=== PATIENT | male | born 1935 | race African-American/Black ===

== ENCOUNTER 2018-11-29 16:20 | Inpatient (IN) ==
--- NOTE | 2018-11-29 18:14 | Diag Imaging Result Doc PS360 ---
EXAM: CT HEAD W/O CONTRAST HISTORY: syncope TECHNIQUE: CT head without contrast COMPARISON: 12/29/2012 FINDINGS: No parenchymal hemorrhage. No epidural or subdural hematoma. No subarachnoid hemorrhage. There are chronic microvascular ischemic changes. No mass identified on this noncontrasted exam. No hydrocephalus. No sinus opacification. IMPRESSION: 1.No hemorrhage 2.Chronic microvascular ischemic changes. This exam was performed using automated exposure control, adjustment of mA or kV according to patient size, and/or use of iterative reconstruction technique. Electronically signed by Bert Zacarias 11/29/2018 6:12 PM
[2018-11-29 18:47] LABS: BASO# 0.02 X1000 (0.0-0.2); BASO% 0.1 % (0.0-0.8); HEMATOCRIT 42.7 % (42.0-52.0); HEMOGLOBIN 14.7 g/dL (14.0-18.0); IMM GRAN# 0.07 X1000 (0.0-0.04); IMM GRAN% 0.4 % (0.0-0.5); LYMPH# 1.05 X1000 (1.2-3.4); LYMPH% 6.1 % (20.5-51.1); MCH 28.7 PG (27-31); MCHC 34.4 g/dL (33-37); MCV 83.4 FL (81-99); MONO# 2.73 X1000 (0.11-0.59); MONO% 15.8 % (1.7-9.3); MPV 11.9 FL (7.4-10.4); NEUT# 13.43 X1000 (1.4-6.5); NEUT% 77.6 % (42.2-75.2); PLT 125 X1000 (130-400); RBC 5.12 XMIL (4.7-6.1); RDW 14.6 % (11.5-14.5)
--- NOTE | 2018-11-29 18:56 | PROVIDER DOCUMENTATION ---
This chart was entered by Linh Carrizales Scribe, acting as scribe for Blake Tanner MD. HPI-Syncope/Dizziness - General Source: patient - History of Present Illness-Syncope/Dizzy Prior Episodes: reports: single episode today Onset/Duration: reports: just prior to arrival Timing: reports: gone now Position/Activity at time of episode: reports: standing Symptoms prior to episode: reports: lightheaded Context: reports: lost consciousness Loss of Consciousness: brief (seconds) Location of injury. (If syncope resulted in an injury.): reports: none Current Symptoms: reports: none/feels normal <Blake Tanner - Last Filed: 11/29/18 19:04> <Renato Guerrier - Last Filed: 11/29/18 21:05> - General Chief Complaint: Syncope Stated Complaint: DIZZY Time Seen by Provider: 11/29/18 16:57 Allergies/Adverse Reactions: Patient Allergies Allergy/AdvReac Type Severity Reaction Status Date / Time No Known Allergies Allergy Verified 01/24/15 19:23 Home Medications: Home Medication List Medication Instructions Recorded Confirmed Last Taken Type Allopurinol [Zyloprim] 300 mg PO DAILY 12/28/12 01/24/15 01/24/15 16:15 History Amlodipine Besylate 10 mg PO DAILY 12/28/12 01/24/15 01/24/15 16:15 History Lisinopril/Hydrochlorothiazide 1 each PO BID 12/28/12 01/24/15 01/24/15 16:15 History [Lisinopril-Hctz 20-12.5 mg Tab] Multivitamins/Minerals [Centrum 1 dose PO DAILY 01/24/15 01/24/15 01/24/15 16:15 History Silver] - History of Present Illness-Syncope/Dizzy Nature of Presenting Problem: Patient is a 83 year old male who presents after having a syncopal episode. Patient states he was lightheaded prior to passing out. Denies chest pain and palpitations. States having a prior episode of syncope in October. (Blake Tanner) Review of Systems - Adult - REVIEW OF SYSTEMS - ADULT Constitutional: reports: no symptoms reported. denies: chills, fever, fatique Eyes: reports: no symptoms reported Ears, Nose, Mouth & Throat: reports: no symptoms reported Cardiovascular: reports: no symptoms reported. denies: chest pain, irregular heart rate, palpitations Respiratory: reports: no symptoms reported Gastrointestinal: reports: no symptoms reported Genitourinary: reports: no symptoms reported Musculoskeletal: reports: no symptoms reported Integumentary: reports: no symptoms reported Neurological: reports: see HPI, syncope, other (lightheadedness). denies: dizziness/vertigo, headache/migraines Psychiatric: reports: no symptoms reported Endocrine: reports: no symptoms reported Hematologic/Lymphatic: reports: no symptoms reported Allergic/Immunologic: reports: no symptoms reported All Other Systems: Reviewed and Negative <Blake Tanner - Last Filed: 11/29/18 19:04> Past History - Adult - PAST MEDICAL HISTORY-ADULT Review of Records: reports: Old Records Reviewed, Nursing Assessment Review, Medications Reviewed, Social history reviewed & non-contributory. Major Childhood Illnesses: reports: denies history Cardiovascular: reports: HTN Respiratory: reports: denies history Gastrointestinal: reports: denies history Obstetrical/Gynecological: reports: denies history Genitourinary: reports: denies history Musculoskeletal: reports: other (gout) Neurological: reports: denies history Endocrine/Immune: reports: denies history Other Conditions: reports: denies history - PRIOR SURGERIES/PROCEDURES Surgical/Procedure History: reports: reviewed, not pertinent - IMMUNIZATION STATUS Childhood Immunizations: See Nurse Assessment Flu Vaccine: See Nurse Assessment - FAMILY HISTORY Family History: reviewed, not pertinent - SOCIAL HISTORY Smoking: cigarettes (former) Substance Use: alcohol Alcohol Use Frequency: occasionally Living Situation: family <Blake Tanner - Last Filed: 11/29/18 19:04> Physical Exam-General - PHYSICAL EXAM-ADULT Initial Vital Signs Reviewed: Yes - CONSTITUTIONAL General Appearance: alert, no apparent distress. negative: lethargic, slow to respond - EYES Eyes: PERRL/EOMI, pink conjunctivae. negative: scleral icterus - HEAD, EARS, NOSE, MOUTH & THROAT HENMT: normocephalic/atraumatic, moist mucous membranes, pharynx normal. neg ative: angioedema, hearing deficit - RESPIRATORY Respiratory: chest non-tender, lungs clear, normal breath sounds. negative: crackles, rhonchi, stridor, wheezing - CARDIOVASCULAR Cardiovascular: normal peripheral pulses, regular rate, rhythm. negative: tachycardia, systolic murmur - GASTROINTESTINAL (ABDOMEN) Abdominal Exam: normal bowel sounds, non tender, soft. negative: guarding, rebound - MUSCULOSKELETAL Extremity: non-tender, normal inspection. negative: deformity, erythema, swell ing DTR: bicep (R): 2+, bicep (L): 2+, tricep (R): 2+, tricep (L): 2+, knee (R): 2+, knee (L): 2+, ankle (R): 2+, ankle (L): 2+ - SKIN Integumentary: normal color, normal turgor, warm/dry. 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 negative: aphasia, facial droop - PSYCHIATRIC Psych/Mental Status: normal mood/affect, oriented x 3. negative: anxious <Blake Tanner - Last Filed: 11/29/18 19:04> Progress - PLAN OF CARE/RESULTS Result Diagrams: 11/29/18 18:30 - EKG 1 Time of EKG reading by physician:: 16:32 EKG Read and Signed by:: Blake Tanner EKG Interpretation (*Must complete 3 of following elements*): Abnormal Rate: 73 Rhythm: normal sinus rhythm [place]: normal [place] Interval: normal Comments: septal infarct, age undetermined - CHANGE OF SHIFT REPORT (ED Provider) 1 Report Given and Care Transferred to:: [facility] Time of Transfer: 19:00 Items Pending: Labs <Blake Tanner - Last Filed: 11/29/18 19:04> - PLAN OF CARE/RESULTS Result Diagrams: 11/29/18 18:30 11/29/18 18:30 - REASSESSMENT Reassessment #1 Time Reassessed: 19:32 Status: unchanged (Seen and examined by me. Case discussed wiht Dr. Tanner at shift change. Patient states he does not know why he passed out today. He does have low grade temp, and leukocytosis, so we will check CXR and urine, culture and lactate. D-Dimer was elevated, so will check CTA to r/o PE. BP has a diastolic of 118 at this time, so will give po meds as he states he did not take his normal BP meds this morning.) Reassessment #2 Time Reassessed: 21:04 Status: improving (Patient has PNE, at bedside says he's had shaking chills all day. Will give IV Rocephin/Zithromax and duoneb. Will benefit from overnight admissions) - CT/MRI 1 CT Study: Angiogram (Pulmonary) Impression: Abnormal, See EMR Report ( EXAM: CT ANGIOGRM PULMONARY ARTERIES HISTORY: syncope, r/o pe TECHNIQUE: CT chest with intravenous contrast. Pulmonary arterial protocol with MIP images. COMPARISON: 01/24/2015 FINDINGS: Suboptimal timing. Poor opacification of the upper pulmonary arteries. No definite filling defects within the pulmonary arteries. No pleural effusions. No cardiac megaly. No thoracic aortic aneurysm or dissection. No enlarged lymph nodes. Small infiltrates in the left upper lobe. There is pulmonary edema. Mild emphysema IMPRESSION: 1.Suboptimal timing, but no pulmonary emboli identified 2.Small left upper lobe infiltrates 3.Pulmonary edema 4.Emphysema This exam was performed using automated exposure control, adjustment of mA or kV according to patient size, and/or use of iterative reconstruction technique. Electronically signed by Bert Zacarias 11/29/2018 8:54 PM 11/29/182053 Interpreting Physician: Bert Zacarias MD Dictated Date/Time: 11/29/182050 cc: Renato Guerrier MD; None,PCP) - CONSULTS/PCP/HOSPITALIST Notification #1 *Consult/PCP/Hospitalist*: Dr. Madrid Time Discussed: 21:05 Consult Disposition: Will see in ED <Renato Guerrier - Last Filed: 11/29/18 21:05> - PLAN OF CARE/RESULTS Progress/Plan/Lab Results: Vital Signs - 8 hr 11/29/18 16:22 11/29/18 18:43 Temperature 99.1 F Pulse Rate 74 Pulse Rate [Sitting] 77 Pulse Rate [Standing] 71 Pulse Rate [Supine] 67 Respiratory Rate 16 Blood Pressure 134/70 Blood Pressure [Sitting] 156/74 Blood Pressure [Standing] 147/74 Blood Pressure [Supine] 163/63 O2 Sat by Pulse Oximetry 96 Laboratory Results - last 24 hr 11/29/18 11/29/18 11/29/18 18:30 18:30 18:30 WBC 17.30 H RBC 5.12 Hgb 14.7 Hct 42.7 MCV 83.4 MCH 28.7 MCHC 34.4 RDW Std Deviation 14.6 H Plt Count 125 L MPV 11.9 H Immature Gran % (Auto) 0.4 Neut % (Auto) 77.6 H Lymph % (Auto) 6.1 L [place] % (Auto) 15.8 H Eos % (Auto) 0.0 Baso % (Auto) 0.1 Immature Gran # (Auto) 0.07 H Neut # (Auto) 13.43 H Lymph # (Auto) 1.05 L [place] # (Auto) 2.73 H Eos # (Auto) 0.00 Baso # (Auto) 0.02 D-Dimer, Quantitative 0.87 H Sodium 139 Potassium 3.8 Chloride 102 Carbon Dioxide 24 L Anion Gap 13 BUN 14 Creatinine 1.3 H Estimated GFR/1.73 m2 > 60 BUN/Creatinine Ratio 11 Glucose 119 H Calculated Osmolality 279 Calcium 9.3 Magnesium Total Bilirubin 1.02 H AST 33 ALT 26 Alkaline Phosphatase 85 Creatine Kinase Troponin T Total Protein 7.2 Albumin 4.2 Globulin 3.0 Albumin/Globulin Ratio 1.4 Plasma Lactate Urine Source Urine Color Urine Turbidity Urine pH Ur Specific [place] Urine Protein Ur Glucose (Stick) Ur Ketones (Stick) Urine Blood Urine Nitrite Urine Bilirubin Urobilinogen Dipstick Urine Leukocytes Urine WBC (Auto) Urine RBC (Auto) U Epithel Cells (Auto) Urine Bacteria (Auto) 11/29/18 11/29/18 11/29/18 18:30 18:32 18:32 WBC RBC Hgb Hct MCV MCH MCHC RDW Std Deviation Plt Count MPV Immature Gran % (Auto) Neut % (Auto) Lymph % (Auto) [place] % (Auto) Eos % (Auto) Baso % (Auto) Immature Gran # (Auto) Neut # (Auto) Lymph # (Auto) [place] # (Auto) Eos # (Auto) Baso # (Auto) D-Dimer, Quantitative Sodium Potassium Chloride Carbon Dioxide Anion Gap BUN Creatinine Estimated GFR/1.73 m2 BUN/Creatinine Ratio Glucose Calculated Osmolality Calcium Magnesium Total Bilirubin AST ALT Alkaline Phosphatase Creatine Kinase 140 Troponin T < 0.010 Total Protein Albumin Globulin Albumin/Globulin Ratio Plasma Lactate Urine Source CLEAN CATCH Urine Color YELLOW Urine Turbidity CLEAR Urine pH 5.5 Ur Specific [place] 1.018 Urine Protein 50 A Ur Glucose (Stick) NEGATIVE Ur Ketones (Stick) NEGATIVE Urine Blood NEGATIVE Urine Nitrite NEGATIVE Urine Bilirubin NEGATIVE Urobilinogen Dipstick NORMAL Urine Leukocytes NEGATIVE Urine WBC (Auto) <10 Urine RBC (Auto) <10 U Epithel Cells (Auto) <10 Urine Bacteria (Auto) NEGATIVE 11/29/18 11/29/18 18:32 19:48 WBC RBC Hgb Hct MCV MCH MCHC RDW Std Deviation Plt Count MPV Immature Gran % (Auto) Neut % (Auto) Lymph % (Auto) [place] % (Auto) Eos % (Auto) Baso % (Auto) Immature Gran # (Auto) Neut # (Auto) Lymph # (Auto) [place] # (Auto) Eos # (Auto) Baso # (Auto) D-Dimer, Quantitative Sodium Potassium Chloride Carbon Dioxide Anion Gap BUN Creatinine Estimated GFR/1.73 m2 BUN/Creatinine Ratio Glucose Calculated Osmolality Calcium Magnesium 1.9 Total Bilirubin AST ALT Alkaline Phosphatase Creatine Kinase Troponin T Total Protein Albumin Globulin Albumin/Globulin Ratio Plasma Lactate 1.3 Urine Source Urine Color Urine Turbidity Urine pH Ur Specific [place] Urine Protein Ur Glucose (Stick) Ur Ketones (Stick) Urine Blood Urine Nitrite Urine Bilirubin Urobilinogen Dipstick Urine Leukocytes Urine WBC (Auto) Urine RBC (Auto) U Epithel Cells (Auto) Urine Bacteria (Auto) Orders Category Date Time Status ED: Orthostatic Vital Signs (E as directed Care 11/29/18 17:37 Active Nursing- Obtain EKG ONCE Care 11/29/18 17:37 Active CHEST-PORTABLE [RAD] Stat Exams 11/29/18 19:[address] HEAD W/O CONTRAST [CT] Stat Exams 11/29/18 17:37 Completed CTA [CT ANGIOGRM PULMONARY ARTERIES] [CT] Stat Exams 11/29/18 19:27 Completed BLOOD CULTURE [BLDCUL] Stat Lab 11/29/18 19:40 Results CBC WITH DIFF [HEME] Stat Lab 11/29/18 18:30 Completed CK PROFILE [SP CHEM] Stat Lab 11/29/18 18:32 Completed COMPREHENSIVE METABOLIC PANEL [CHEM] Stat Lab 11/29/18 18:30 Completed D-DIMER [COAG] Stat Lab 11/29/18 18:30 Completed LACTATE, PLASMA [CHEM] Stat Lab 11/29/18 19:48 Completed MAGNESIUM [CHEM] Stat Lab 11/29/18 18:32 Completed TROPONIN T Stat Lab 11/29/18 18:32 Completed URINALYSIS W/POSS RFLX CULT [URINALYSIS] Stat Lab 11/29/18 18:30 Completed 0.9% Sodium Chloride Inj [Ns] 1,000 ml Med 11/29/18 19:28 Discontinued IV 999 mls/hr Albuterol 2.5MG/Ipratrop 0.5MG [Duoneb (A & A)] Med 11/29/18 21:02 Once 3 ml INH NOW ONE Amlodipine [Norvasc] Med 11/29/18 19:31 Discontinued 10 mg PO NOW ONE Azithromycin 500 mg/Ns [Zithromax 500 mg/Ns] Med 11/29/18 21:02 Ordered 500 mg in 250 ml IV NOW LISINOpril/HCTZ [Prinzide 20/12.5MG] Med 11/29/18 19:31 Discontinued 1 each PO NOW ONE Rocephin 1 gm/Ns IV Now Med 11/29/18 21:02 Ordered CefTRIAXONE [Rocephin] 1 gm 0.9% Sodium Chloride Inj [Ns] 50 ml IV NOW Aerosol Treatments Routine Oth 11/29/18 21:03 Ordered Aerosol Treatments Stat Oth 11/29/18 21:03 Ordered EKG [EKG] Stat Ther 11/29/18 17:37 Ordered Departure <Blake Tanner - Last Filed: 11/29/18 19:04> - Departure Date of Disposition Decision: 11/29/18 Time of Disposition Decision: 21:04 Certified Medical Emergency: Emergent - Critical Care Note This patient required my direct & personal management of CC.: No <Renato Guerrier - Last Filed: 11/29/18 21:05> - Departure DIAGNOSIS: Syncope and collapse, Essential hypertension, COPD with exacerbation Left upper lobe pneumonia Qualifiers: Pneumonia type: due to unspecified organism Qualified Code(s): J18.1 - Lobar pneumonia, unspecified organism Disposition: ADMITTED INPATIENT 09 Condition: Fair Referrals and Follow-Ups: None,PCP [Primary Care Provider] - Attestation - Physician/ CHARMAINE Attestation The physician spent face to face time with patient:: Yes Advanced Practice Provider documentation review:: Supervising physician onsite and consulted in the evaluation and care of this patient. The physician did have a face to face encounter with the patient. <Blake Tanner - Last Filed: 11/29/18 19:04> - Physician/ CHARMAINE Attestation Patient care was provided by Advanced Practice Provider:: No The physician spent face to face time with patient:: Yes Advanced Practice Provider documentation review:: Supervising physician onsite and consulted in the evaluation and care of this patient. The physician did have a face to face encounter with the patient. <Renato Guerrier - Last Filed: 11/29/18 21:05> This chart was documented by the indicated scribe, (Linh Carrizales Scribe) and accurately reflects the services I performed and decisions made by me, Blake Tanner MD, as attested by the provider's signature.
[2018-11-29 19:09] LABS: AGAP 13; ALB/GLOB RATIO 1.4; ALBUMIN 4.2 g/dL (3.5-5.0); ALKALINE PHOSPHATASE 85 U/L (32-122); BUN 14 mg/dL (8-22); CALCIUM 9.3 mg/dL (8.8-10.2); CHLORIDE 102 mmol/L (98-107); COSMO 279; CREATININE 1.3 mg/dL (0.7-1.2); ESTIMATED GFR > 60; GLUCOSE 119 mg/dL (70-104); GOT 33 U/L (10-34); GPT 26 U/L (10-44); POTASSIUM 3.8 mmol/L (3.5-5.1); SODIUM 139 mmol/L (136-145); TCO2 24 mmol/L (25-35); TOTAL BILIRUBIN 1.02 mg/dL (0.20-1.00); TOTAL PROTEIN 7.2 g/dL (6.3-8.3)
[2018-11-29] MEDS ORDERED: NS 1,000 ML IV ONE (19:28)
[2018-11-29] MEDS ORDERED: NORVASC PO ONE (19:31)
[2018-11-29] MEDS ORDERED: PRINZIDE 20/12.5MG PO ONE (19:31)
[2018-11-29 19:59] LABS: URINE SOURCE CLEAN CATCH
--- NOTE | 2018-11-29 20:04 | Diag Imaging Result Doc PS360 ---
EXAM: CHEST-PORTABLE HISTORY: syncope TECHNIQUE: Chest single view COMPARISON: 01/24/2015 FINDINGS: The lungs are well expanded. The heart is not enlarged. The vessels are not distended. There are no infiltrates. No effusion identified. The appearance of the chest is similar to the prior exam. IMPRESSION: Stable chest Electronically signed by Bert Zacarias 11/29/2018 8:01 PM
[2018-11-29 20:09] LABS: BILIRUBIN URINE NEGATIVE (NEGATIVE); BLOOD URINE NEGATIVE (NEGATIVE); COLOR YELLOW; GLUCOSE URINE NEGATIVE (NEGATIVE); KETONE URINE NEGATIVE (NEGATIVE); LEUKOCYTES URINE NEGATIVE (NEGATIVE); NITRITE URINE NEGATIVE (NEGATIVE); PH URINE 5.5; PROTEIN URINE 50 mg/dL (NEGATIVE); SP GRAVITY URINE 1.018; TURBIDITY URINE CLEAR (CLEAR); UROBILINOGEN URINE NORMAL (NORMAL)
[2018-11-29 20:11] LABS: UR EPITHELIAL CELLS <10 /HPF (<10); URINE BACTERIA NEGATIVE /HPF; URINE RBC <10 /HPF (<10); URINE WBC <10 /HPF (<10)
--- NOTE | 2018-11-29 20:57 | Diag Imaging Result Doc PS360 ---
EXAM: CT ANGIOGRM PULMONARY ARTERIES HISTORY: syncope, r/o pe TECHNIQUE: CT chest with intravenous contrast. Pulmonary arterial protocol with MIP images. COMPARISON: 01/24/2015 FINDINGS: Suboptimal timing. Poor opacification of the upper pulmonary arteries. No definite filling defects within the pulmonary arteries. No pleural effusions. No cardiac megaly. No thoracic aortic aneurysm or dissection. No enlarged lymph nodes. Small infiltrates in the left upper lobe. There is pulmonary edema. Mild emphysema IMPRESSION: 1.Suboptimal timing, but no pulmonary emboli identified 2.Small left upper lobe infiltrates 3.Pulmonary edema 4.Emphysema This exam was performed using automated exposure control, adjustment of mA or kV according to patient size, and/or use of iterative reconstruction technique. Electronically signed by Bert Zacarias 11/29/2018 8:54 PM
[2018-11-29] MEDS ORDERED: ROCEPHIN 1 GM in NS 50 ML IV ONE (21:02)
[2018-11-29] MEDS ORDERED: ZITHROMAX 500 MG/NS 500 MG/250 ML IVPB IV ONE (21:02)
[2018-11-29] MEDS ORDERED: DUONEB (A & A) INH ONE (21:02)
[2018-11-29] MEDS ORDERED: ZITHROMAX 500 MG/NS 500 MG/250 ML IVPB IV SCH (21:45)
[2018-11-30 06:36] LABS: BASO# 0.04 X1000 (0.0-0.2); BASO% 0.3 % (0.0-0.8); EOS# 0.01 X1000 (0.0-0.7); EOS% 0.1 % (0.0-10.0); HEMATOCRIT 40.6 % (42.0-52.0); HEMOGLOBIN 13.9 g/dL (14.0-18.0); IMM GRAN# 0.05 X1000 (0.0-0.04); IMM GRAN% 0.3 % (0.0-0.5); LYMPH# 1.22 X1000 (1.2-3.4); LYMPH% 8.3 % (20.5-51.1); MCH 28.5 PG (27-31); MCHC 34.2 g/dL (33-37); MCV 83.4 FL (81-99); MPV 12.4 FL (7.4-10.4); NEUT# 11.44 X1000 (1.4-6.5); PLT 107 X1000 (130-400); RBC 4.87 XMIL (4.7-6.1); RDW 14.6 % (11.5-14.5); WBC 14.66 X1000 (4.8-10.8)
[2018-11-30 07:18] LABS: AGAP 7; BUN 13 mg/dL (8-22); CALCIUM 8.9 mg/dL (8.8-10.2); CHLORIDE 104 mmol/L (98-107); COSMO 277; CREATININE 1.2 mg/dL (0.7-1.2); ESTIMATED GFR > 60; GLUCOSE 123 mg/dL (70-104); POTASSIUM 3.6 mmol/L (3.5-5.1); SODIUM 138 mmol/L (136-145); TCO2 27 mmol/L (25-35)
--- NOTE | 2018-11-30 07:19 | EKG Report ---
Test Performed on : 11/29/2018 4:32:19 PM Test Reason : syncope Blood Pressure : / mmHG Vent. Rate : 073 BPM Atrial Rate : 073 BPM P-R Int : 190 ms QRS Dur : 108 ms QT Int : 378 ms P-R-T Axes : 053 -28 044 degrees QTc Int : 416 ms Normal sinus rhythm. Septal infarct , age undetermined Abnormal ECG When compared with ECG of 24-JAN-2015 19:15, Nonspecific T wave abnormality, worse in Lateral leads Unconfirmed Result
[2018-11-30] MEDS: DUONEB (A & A) INH PRN ×5 (08:30→23:25)
--- NOTE | 2018-11-30 10:48 | HISTORY AND PHYSICAL ---
PRIMARY CARE PHYSICIAN: [facility]. CHIEF COMPLAINT: Passed out at work, having cough, and shortness of breath. HISTORY OF PRESENT ILLNESS: An 83-year-old elderly male with a history of hypertension and gout who had an episode where he states he passed out at work. He states he was in the bathroom and the next thing he remembers he was on the floor. The patient states he was also having some cough, shortness of breath and chills recently. He was evaluated in the emergency department. He had imaging done which did show left upper lobe infiltrate consistent with pneumonia. Due to his presenting symptoms, he will require admission for further management. At the time of my examination, the patient denied any headache, nausea, vomiting, diarrhea, chest pain, hemoptysis, melena or weight change. He still complains of cough, shortness of breath, and chills. PAST MEDICAL HISTORY: Hypertension. Gout. PAST SURGICAL HISTORY: Back surgery. Abdominal surgery. Cataract surgery. ALLERGIES: No known drug allergies. CURRENT MEDICATIONS: He does not recall, but the nursing staff will reconcile. SOCIAL HISTORY: He is a former smoker. Admits to social alcohol use. Denies any illicit drug use. FAMILY HISTORY: No history of coronary disease. REVIEW OF SYSTEMS: A 14 point Review of Systems as listed in HPI. Other systems negative. PHYSICAL EXAMINATION: GENERAL: Cooperative and friendly male. He is resting comfortably now. VITAL SIGNS: Temperature 99.1, pulse 74, respirations 16, and blood pressure 134/70. HEENT: Normocephalic and atraumatic. Extraocular movements are intact. PERRLA. NECK: Supple. LUNGS: Bibasilar rales. CARDIOVASCULAR: Regular rate and rhythm. ABDOMEN: Soft. Positive bowel sounds. EXTREMITIES: No edema. NEUROLOGIC: He is awake, alert and oriented x3. : No bladder distention. SKIN: Warm. LABORATORY AND STUDIES: WBC 17.3, hemoglobin 14.7, hematocrit 42.7, and platelets 125,000. Sodium 139, potassium 2.8, chloride 102, C02 24, BUN 14, creatinine 1.3. Glucose 119. Pulmonary arteriograms shows small left upper lobe infiltrate. ASSESSMENT: An 83-year-old male with a history of hypertension and gout, who had presented to our emergency department after he had an episode where he passed out. The patient states that previously he was having cough, shortness of breath, and chills. He was well in the emergency department. He had imaging done which did show a small left upper lobe infiltrate consistent with pneumonia. Subsequently, he will require admission for further management. 1. Syncopal episode. 2. Left upper lobe infiltrate, suspected pneumonia. 3. Hypertension. PLAN: 1. We will admit the patient to the medical floor with telemetry. 2. We will check orthostatic blood pressure and pulse. 3. We will check echocardiogram. 4. We will check blood cultures and start patient on IV antibiotics. 5. We will monitor blood pressures and antihypertensive agents. 6. We will put patient on DVT prophylaxis and SCD's. 7. We will continue to follow and reassess. Make further recommendations based on patient's clinical course. cc: Lauri Madrid MD
[2018-11-30] MEDS ORDERED: VANCOMYCIN IV PER PHARMACY MISC SCH (16:15)
[2018-11-30] MEDS ORDERED: VANCOMYCIN 2,500 MG in NS 500 ML IV ONE (17:00)
--- NOTE | 2018-11-30 20:40 | PROGRESS NOTE ---
DATE: 11/30/2018 INTERVAL HISTORY: Mr. Hinton was admitted overnight for presyncope, cough, shortness of breath and chills episode. He was started on intravenous antibiotics and was given intravenous fluids. Since then he has been feeling better. He denies any new complaints. He tells me that when he was trying to come out of his toilet he felt really weak and his legs gave out, so he had to fall down on his knees. However, he did not lose any consciousness. He was able to get up by himself and thus when he called his partner and came to the emergency room. He continues to have cough with brownish expectoration. Sputum culture has not been collected yet. VITALS: Temperature no fever episode, a temperature of 98.4, pulse 72, respiratory rate 18, blood pressure 128/70. Saturating 95% on room air. PHYSICAL EXAMINATION: General: Does not appear in any acute distress. HEENT: Oral cavity is moist. Lungs: Air entry bilaterally equal. No wheeze or rhonchi. He does have crackles on left infrascapular region. Cardiovascular: S1, S2 normal. No murmur or gallop. Abdomen: Soft, nontender. No hepatosplenomegaly. he is alert and oriented x 3. LABS: Suggestive of leukocytosis, close to normal hemoglobin. He also is found to have thrombocytopenia which is chronic. Microbiology: One of the two blood cultures is positive for gram-positive cocci and his antibiotics are changed to include intravenous vancomycin. He did have elevated D-dimer, but pulmonary CT angiography did not detect any pulmonary embolism. His creatinine is improved. Urine Legionella and streptococcal antigens are pending. ASSESSMENT AND PLAN: 1. Community-acquired left upper lobe pneumonia. Follow up urine antigens, blood culture, sputum culture. Continue intravenous ceftriaxone and start him on intravenous vancomycin considering one of the two blood cultures being positive for gram-positive cocci. 2. Presyncope. CT scan head was unremarkable. Follow up with echocardiogram. This could be in the setting of his pneumonia and suspected sepsis now. I will have Physical Therapy evaluate him as well in future if needed. Currently, he is able to go to the bathroom without any help. 3. Essential hypertension. His medications are yet to be reconciled. I am resuming him on amlodipine. 4. Disposition: I am continuing to monitor patient inside the hospital as I await final blood culture and sputum culture results. Plan of care discussed with him. All of his questions have been answered. cc: Art Chairez MD MTDD
[2018-11-30] MEDS: ROCEPHIN 1 GM in NS 50 ML IV SCH (21:46)
--- NOTE | 2018-11-30 22:45 | ECHO REPORT ---
ORDER DATE: 11/29/2018 MEASUREMENTS: Septal thickness 1.1, left ventricular internal diameter end diastole 4.7, posterior wall thickness 1.1, left ventricular internal diameter end systole 3.1, aortic root 3.8, left atrium 2.7. SUMMARY: 1. Technically difficult study due to limited acoustic window quality. 2. Mild sclerosis of trileaflet aortic valve demonstrated with adequate aortic valve opening evident. Peak gradient across the aortic valve is less than 10 mmHg. Mitral and tricuspid valves are without evidence of structural abnormality. Pulmonic valve is not demonstrated. There is trace mitral regurgitation and trace tricuspid regurgitation. The aortic root is borderline enlarged. 3. Normal left ventricular chamber size with borderline concentric left hypertrophy is demonstrated. Estimated left ventricular ejection fraction appears to be at least 70%. No regional wall abnormalities can be appreciated. Doppler suggests grade 1 left ventricular diastolic dysfunction. Left atrium, right atrium, and right ventricle are normal in size with grossly preserved right ventricular systolic function. 4. No pericardial effusion. 5. Appearance of inferior vena cava suggests normal central venous pressure. cc: MD Lauri Mueller MD
[2018-12-01] MEDS: DUONEB (A & A) INH PRN ×3 (03:45→11:42)
[2018-12-01 06:31] LABS: BASO# 0.02 X1000 (0.0-0.2); BASO% 0.2 % (0.0-0.8); EOS# 0.11 X1000 (0.0-0.7); EOS% 1.2 % (0.0-10.0); HEMATOCRIT 39.1 % (42.0-52.0); HEMOGLOBIN 13.5 g/dL (14.0-18.0); IMM GRAN# 0.02 X1000 (0.0-0.04); IMM GRAN% 0.2 % (0.0-0.5); LYMPH# 1.26 X1000 (1.2-3.4); LYMPH% 13.6 % (20.5-51.1); MCH 28.9 PG (27-31); MCHC 34.5 g/dL (33-37); MCV 83.7 FL (81-99); MONO# 1.51 X1000 (0.11-0.59); MONO% 16.3 % (1.7-9.3); MPV 11.4 FL (7.4-10.4); NEUT# 6.32 X1000 (1.4-6.5); NEUT% 68.5 % (42.2-75.2); PLT 99 X1000 (130-400); RBC 4.67 XMIL (4.7-6.1); RDW 14.9 % (11.5-14.5); WBC 9.24 X1000 (4.8-10.8)
[2018-12-01 06:38] LABS: AGAP 12; BUN 16 mg/dL (8-22); CALCIUM 8.8 mg/dL (8.8-10.2); CHLORIDE 105 mmol/L (98-107); COSMO 283; CREATININE 1.3 mg/dL (0.7-1.2); ESTIMATED GFR > 60; GLUCOSE 110 mg/dL (70-104); POTASSIUM 3.3 mmol/L (3.5-5.1); SODIUM 141 mmol/L (136-145); TCO2 24 mmol/L (25-35)
[2018-12-01] MEDS: NORVASC PO SCH (08:48)
[2018-12-01] MEDS ORDERED: DUONEB (A & A) INH PRN (14:57)
[2018-12-01] MEDS: 1/2 NS + KCL 20 MEQ 1,000 ML IV SCH (16:04)
[2018-12-01] MEDS: SOLU-MEDROL IV SCH (16:05)
[2018-12-01] MEDS: DUONEB (A & A) INH SCH ×3 (16:17→23:30)
[2018-12-01] MEDS: VANCOMYCIN 2,000 MG in NS 500 ML IV SCH (16:53)
--- NOTE | 2018-12-01 16:59 | PROGRESS NOTE ---
DATE: 12/01/2018 Today Mr. Root refers to be doing a little better. Still having some mild wheezing and cough with yellowish sputum production. OBJECTIVE: Vital signs: Blood pressure is 140/62, pulse of 60, respiration is 20, temperature 97.9 degrees. General: Mr. Root 83-year-old gentleman he was sitting up at the edge of the bed, no distress. Mucosa is pink and moist. Anicteric. Acyanotic. Neck: Supple. Chest: Air entry is bilaterally reduced more so to the left posterior lung field. There is a distant wheezing over there but no crackles. Cardiovascular: Regular rate and rhythm. Abdomen: Soft. Extremities: No pedal edema. 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 LABORATORY DATA: WBC has normalized 9.24. Chemistry shows creatinine is 1.3. Echocardiogram did show an ejection fraction of 70% with grade 1 left ventricular diastolic dysfunction. Sputum culture still waiting. ASSESSMENT: 1. Left upper lobe pneumonia. 2. Chronic obstructive pulmonary disease with mild exacerbation. 3. Acute kidney injury. 4. Near syncope likely due to orthostatic hypotension resolved. 5. Generalized weakness. Patient will be evaluated by physical therapy. 6. I have spoken to the daughter who was at the bedside at the time of the encounter. I did explain to her my findings and the plan going forward. All their questions and concerns have been addressed. cc: Marcos Boyd MD
[2018-12-01] MEDS: ROCEPHIN 1 GM in NS 50 ML IV SCH (20:55)
[2018-12-02] MEDS: DUONEB (A & A) INH SCH ×6 (03:25→23:30)
[2018-12-02] MEDS: SOLU-MEDROL IV SCH ×2 (03:31→15:58)
[2018-12-02] MEDS: 1/2 NS + KCL 20 MEQ 1,000 ML IV SCH (05:45)
[2018-12-02 07:14] LABS: AGAP 12; BUN 16 mg/dL (8-22); CALCIUM 9.5 mg/dL (8.8-10.2); CHLORIDE 102 mmol/L (98-107); COSMO 278; CREATININE 1.2 mg/dL (0.7-1.2); ESTIMATED GFR > 60; GLUCOSE 153 mg/dL (70-104); POTASSIUM 3.9 mmol/L (3.5-5.1); SODIUM 137 mmol/L (136-145); TCO2 23 mmol/L (25-35)
[2018-12-02] MEDS: NORVASC PO SCH (10:08)
--- NOTE | 2018-12-02 12:33 | PROGRESS NOTE ---
DATE: 12/02/2018 SUBJECTIVE: This morning Mr. Crespo referred to be doing a lot better. Breathing has significantly improved. He is still coughing and is bringing up some yellowish expectoration. OBJECTIVE: Vital signs: Blood pressure 181/72, pulse 70, respirations 16, and temperature 98.5 degrees. Patient is saturating 99% on room air. General: Mr. Crespo is an 83-year-old gentleman. He is in bed not seemingly distress. HEENT: Mucosa is pink and moist. Anicteric. Acyanotic. Neck: Supple. Chest: Good air entry bilateral. There are still some few end expiratory wheezing in both lung donaldson. Cardiovascular: Regular rate and rhythm. No murmurs, no rubs, no gallops. GI: Abdomen is soft and nontender. Bowel sounds present. Extremities: No pedal edema. 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 No focal neurological deficit. LABORATORY DATA: Chemistry is reviewed and is completely normal. So far, the sputum culture is growing 2+ gram-negative rods. The patient is currently on vancomycin and ceftriaxone. We are pending the final culture report. ASSESSMENT: 1. Left upper lobe pneumonia with sputum culture growing gram-negative bernard. The patient is currently on IV antibiotics. We will tailor this accordingly once we have the final ID and sensitivity. 2. COPD with mild exacerbation. We will continue with the current management. 3. Acute kidney injury, improved with overnight hydration. 4. Near-syncope episode at home, likely secondary to orthostatic hypotension resolved. 5. Generalized weakness. Physical Therapy is on board. 6. For the general plan, we will continue with the current antimicrobial coverage. We are pending the ID and sensitivity on the sputum culture so we will tailor the antibiotic accordingly. 7. We anticipate that hopefully tomorrow we will be able to discharge Mr. Crespo. cc: Marcos Boyd MD
[2018-12-02] MEDS: VANCOMYCIN 2,000 MG in NS 500 ML IV SCH (17:58)
[2018-12-02] MEDS: ROCEPHIN 1 GM in NS 50 ML IV SCH (21:23)
[2018-12-03] MEDS: DUONEB (A & A) INH SCH ×3 (03:44→11:19)
[2018-12-03] MEDS: SOLU-MEDROL IV SCH (04:07)
[2018-12-03 06:46] LABS: AGAP 12; BUN 23 mg/dL (8-22); CALCIUM 9.6 mg/dL (8.8-10.2); CHLORIDE 103 mmol/L (98-107); COSMO 279; CREATININE 1.1 mg/dL (0.7-1.2); ESTIMATED GFR > 60; GLUCOSE 129 mg/dL (70-104); POTASSIUM 4.2 mmol/L (3.5-5.1); SODIUM 137 mmol/L (136-145); TCO2 22 mmol/L (25-35)
--- NOTE | 2018-12-03 08:22 | Diag Imaging Result Doc PS360 ---
EXAM: CHEST-2 VIEWS HISTORY: hypoxia TECHNIQUE: Chest two views COMPARISON: 11/29/2018 FINDINGS: The lungs are well expanded. The heart is not enlarged. The vessels are not distended. There are no infiltrates. Likely atelectasis in the left base. No pleural effusions. IMPRESSION: No acute abnormality. Electronically signed by Bert Zacarias 12/03/2018 8:20 AM
[2018-12-03] MEDS: NORVASC PO SCH (09:20)
[2018-12-03 12:18] VITALS: BP 151/55
--- NOTE | 2018-12-04 01:33 | DISCHARGE SUMMARY ---
ADMISSION DATE: 11/29/2018 DISCHARGE DATE: 12/03/2018 DISPOSITION: Home. [facility]LLOW-UP: [facility]. Dr[facility] Padilla. CONSULTATION DURING THIS ADMISSION: None. IMAGING STUDIES OF SIGNIFICANCE: 1. A CT scan of the head showed no hemorrhage, chronic microvascular changes. 2. A chest x-ray showed stable. No infiltrates. 3. A CT of the lungs shows suboptimal timing, but no pulmonary emboli. There was a small left upper lobe infiltrates. There is pulmonary edema and emphysema. 4. An echocardiogram showed an ejection fraction of 70% with grade I left ventricle diastolic dysfunction. 5. A repeat chest x-ray this morning showed no acute abnormality. ADMISSION DIAGNOSES: 1. Syncope. 2. Left upper lobe infiltrate. 3. Hypertension. DIAGNOSES AT TIME OF DISCHARGE: 1. Left upper lobe pneumonia with gram-negative bernard sputum Gram stain. 2. Chronic obstructive pulmonary disease with mild exacerbation. 3. Acute kidney injury. Improved. 4. Near-syncope at home secondary to orthostatic hypotension. 5. Generalized weakness, improved. DISCHARGE MEDICATIONS: 1. Amlodipine 10 mg p.o. b.i.d. daily. 2. Augmentin 875 b.i.d. 3. Doxycycline 100 mg b.i.d. 4. Spiriva 2.5 mcg inhaler, 2 puffs daily. 5. Hydralazine 25 mg 3 times per day. 6. Isordil 10 mg 2 times per day. 7. Combivent inhaler. 8. Combivent for nebulization p.r.n. 9. Prednisone 20 mg once daily for 5 days. PRESENTING COMPLAINT: Cough, shortness of breath, and passing out. HISTORY OF PRESENT COMPLAINT: Mr. Hinton is an 83-year-old gentleman who got admitted because of excessive cough and some shortness of breath. Upon presentation, he was evaluated. A chest x-ray did reveal some left upper lobe infiltrate. He was subsequently admitted for pneumonia. HOSPITAL COURSE: Mr. Hinton was admitted to the medical floor, was adequately hydrated, started on IV antibiotics, steroids, and bronchodilation therapy. He progressively got better on a daily basis. I did discuss his plan and improvement with the daughter almost on an every day basis. This morning, a repeat chest x-ray shows remarkable improvement. He refers to be feeling well himself. Cough has significantly improved and he is not feeling any more dizziness or wanting to pass out. His kidney function has normalized. We have discontinued his hydrochlorothiazide with lisinopril, and started him on Isordil and hydralazine, on top of the amlodipine for better blood pressure control. DISCHARGE PHYSICAL EXAMINATION: Vital signs: This morning, his current vitals, blood pressure is 169/68, pulse of 60, respirations 20, temperature 97.5 degrees. Patient is saturating 98%. His physical exam is unremarkable, except for some distant wheezing in both lung donaldson. Otherwise, physical exam is unremarkable. We think Mr. Hinton is clinically stable and that he will be okay for discharge. All the discharge instructions have been discussed with him. The patient is also asked to follow up with his PCP, who [facility]. TIME SPENT: For discharge is 35 minutes. cc: MD Joe Araiza MD
== END 2018-12-03 14:01 | disposition home health service (06) | DRG 178 ==
LOC: ED 16:20 → SUATTDRO 22:18 → 4N 22:18
PROVIDERS: ATTEND Internal Medicine
CPT/HCPCS: 70450; 71010; 71020; 71045; 71046; 71275; 80048; 80053; 81001; 82550; 82784; 83605; 83735; 84484; 85025; 85379; 87040; 87070; 87205; 87449; 87899; 93005; 93306; 94640; 94761; 96361; 96365; 96375; 97161; 99285; A9270; J0456; J0696; J2920; J3370; J3480; J7030; J7040; Q9967

== ENCOUNTER 2019-04-11 12:48 | Observation (INO) ==
--- NOTE | 2019-04-11 14:33 | Diag Imaging Result Doc PS360 ---
CHEST-1 VIEW - 04/11/2019 INDICATION: bradycardia COMPARISON: 12/03/2018 FINDINGS: Stable cardiomegaly and pulmonary vascular congestion. Stable coarse interstitial opacities in the lung bases suggesting pulmonary fibrosis, left greater than right. No new infiltrates. No large pleural effusion. IMPRESSION: No change from prior. Electronically signed by Logan Ndiaye 04/11/2019 2:31 PM
--- NOTE | 2019-04-11 14:36 | EKG Report ---
Test Performed on : 04/11/2019 1:02:42 PM Test Reason : bradycardia Blood Pressure : / mmHG Vent. Rate : 054 BPM Atrial Rate : 054 BPM P-R Int : 198 ms QRS Dur : 112 ms QT Int : 414 ms P-R-T Axes : 058 003 037 degrees QTc Int : 392 ms Sinus bradycardia. with marked sinus arrhythmia. Incomplete left bundle branch block Nonspecific T wave abnormality Abnormal ECG When compared with ECG of 09-JAN-2019 01:38, No significant change was found Unconfirmed Result
[2019-04-11 14:52] LABS: BASO# 0.02 X1000 (0.0-0.2); BASO% 0.3 % (0.0-0.8); EOS# 0.06 X1000 (0.0-0.7); HEMATOCRIT 38.4 % (42.0-52.0); HEMOGLOBIN 12.3 g/dL (14.0-18.0); IMM GRAN# 0.02 X1000 (0.0-0.04); IMM GRAN% 0.3 % (0.0-0.5); LYMPH# 1.26 X1000 (1.2-3.4); LYMPH% 20.8 % (20.5-51.1); MCH 25.8 PG (27-31); MCV 80.5 FL (81-99); MONO# 0.87 X1000 (0.11-0.59); MONO% 14.4 % (1.7-9.3); MPV 11.9 FL (7.4-10.4); NEUT# 3.82 X1000 (1.4-6.5); NEUT% 63.2 % (42.2-75.2); PLT 142 X1000 (130-400); RBC 4.77 XMIL (4.7-6.1); RDW 14.5 % (11.5-14.5); WBC 6.05 X1000 (4.8-10.8)
[2019-04-11 15:21] LABS: AGAP 12; ALB/GLOB RATIO 1.4; ALBUMIN 4.2 g/dL (3.5-5.0); ALKALINE PHOSPHATASE 93 U/L (32-122); BUN 15 mg/dL (8-22); CALCIUM 9.5 mg/dL (8.8-10.2); CHLORIDE 106 mmol/L (98-107); COSMO 287; CREATININE 1.3 mg/dL (0.7-1.2); ESTIMATED GFR > 60; GLUCOSE 94 mg/dL (70-104); GOT 16 U/L (10-34); GPT 10 U/L (10-44); POTASSIUM 4.5 mmol/L (3.5-5.1); SODIUM 144 mmol/L (136-145); TCO2 26 mmol/L (25-35); TOTAL BILIRUBIN 0.47 mg/dL (0.20-1.00); TOTAL PROTEIN 7.2 g/dL (6.3-8.3)
[2019-04-11] MEDS ORDERED: ANTIVERT PO ONE (15:30)
--- NOTE | 2019-04-11 15:30 | PROVIDER DOCUMENTATION ---
This chart was entered by Linh Carrizales Scribe, acting as scribe for Dc Whittington MD. HPI-General Adult - General Chief Complaint: Dizziness Stated Complaint: DR REFERRAL Time Seen by Provider: 04/11/19 13:22 Source: patient Allergies/Adverse Reactions: Patient Allergies Allergy/AdvReac Type Severity Reaction Status Date / Time No Known Allergies Allergy Verified 03/09/19 18:02 Home Medications: Home Medication List Medication Instructions Recorded Confirmed Last Taken Type Allopurinol [Zyloprim] 300 mg PO DAILY 12/28/12 04/11/19 04/11/19 History Amlodipine Besylate 10 mg PO DAILY 12/28/12 04/11/19 04/11/19 History Multivitamins/Minerals [Centrum 1 dose PO DAILY 01/24/15 04/11/19 04/11/19 History Silver] Polyethylene Glycol 3350 1 dose PO DAILY 11/29/18 04/11/19 04/11/19 History Hydralazine [Apresoline] 25 mg PO TID #240 tab 12/03/18 04/11/19 04/11/19 Rx Finasteride 1 tab PO DAILY 04/11/19 04/11/19 04/11/19 History Losartan [Cozaar] 1 tab PO DAILY 04/11/19 04/11/19 04/11/19 History Sildenafil [Viagra] 1 tab PO PRN PRN 04/11/19 04/11/19 Unknown History Tamsulosin [Flomax] 1 tab PO DAILY 04/11/19 04/11/19 04/11/19 History - History of Present Illness -Gen Adult Nature of Presenting Problems: Patient is a 83 year old male who presents to the ED from the NH with symptomatic bradycardia. States having dizziness. Denies chest pain and shortness of breath. Location of Pain/Injury: reports: none Quality of Pain: reports: none Severity: reports: mild Onset/Duration: reports: gradual Timing: reports: still present Context/Activities at Onset: reports: light activity Associated Symptoms: reports: dizziness Similar Symptoms Previously?: Yes Recently seen or treated by another doctor?: Yes Review of Systems - Adult - REVIEW OF SYSTEMS - ADULT Constitutional: reports: no symptoms reported Eyes: reports: no symptoms reported Ears, Nose, Mouth & Throat: reports: no symptoms reported Cardiovascular: reports: no symptoms reported. denies: chest pain, irregular heart rate, palpitations Respiratory: reports: no symptoms reported. denies: cough, shortness of breath, wheezing Gastrointestinal: reports: no symptoms reported Genitourinary: reports: no symptoms reported Musculoskeletal: reports: no symptoms reported Integumentary: reports: no symptoms reported Neurological: reports: see HPI, dizziness/vertigo (dizziness). denies: headache/migraines, syncope Psychiatric: reports: no symptoms reported Endocrine: reports: no symptoms reported Hematologic/Lymphatic: reports: no symptoms reported Allergic/Immunologic: reports: no symptoms reported All Other Systems: Reviewed and Negative Past History - Adult - PAST MEDICAL HISTORY-ADULT Review of Records: reports: Old Records Reviewed, Nursing Assessment Review, Medications Reviewed, Social history reviewed & non-contributory. Major Childhood Illnesses: reports: denies history Cardiovascular: reports: HTN Respiratory: reports: denies history Gastrointestinal: reports: denies history Obstetrical/Gynecological: reports: denies history Genitourinary: reports: denies history Musculoskeletal: reports: other (gout) Neurological: reports: denies history Endocrine/Immune: reports: denies history Other Conditions: reports: denies history - PRIOR SURGERIES/PROCEDURES Surgical/Procedure History: reports: reviewed, not pertinent, cholecystectomy, bowel surgery - IMMUNIZATION STATUS Childhood Immunizations: See Nurse Assessment Flu Vaccine: See Nurse Assessment - FAMILY HISTORY Family History: reviewed, not pertinent - SOCIAL HISTORY Smoking: denies Substance Use: alcohol Alcohol Use Frequency: occasionally Physical Exam-General - PHYSICAL EXAM-ADULT Initial Vital Signs Reviewed: Yes - CONSTITUTIONAL General Appearance: alert, no apparent distress. negative: lethargic - HEAD, EARS, NOSE, MOUTH & THROAT HENMT: normocephalic/atraumatic, moist mucous membranes. negative: angioedema - RESPIRATORY Respiratory: chest non-tender, lungs clear, normal breath sounds. negative: crackles, rhonchi - CARDIOVASCULAR Cardiovascular: normal peripheral pulses, bradycardia. negative: systolic murmur - GASTROINTESTINAL (ABDOMEN) Abdominal Exam: normal bowel sounds, non tender, soft. negative: guarding, rebound - SKIN Integumentary: normal color, normal turgor, warm/dry. negative: diaphoresis, ecchymosis, jaundice - NEUROLOGIC Neurologic: grossly normal. negative: aphasia, facial droop - PSYCHIATRIC Psych/Mental Status: normal mood/affect, oriented x 3. negative: disheveled Progress - PLAN OF CARE/RESULTS Progress/Plan/Lab Results: Vital Signs - 8 hr 04/11/19 12:53 Temperature 98.1 F Pulse Rate 63 Respiratory Rate 18 Blood Pressure 131/72 O2 Sat by Pulse Oximetry 97 Laboratory Results - last 24 hr 04/11/19 13:01 POC Glucose 99 Result Diagrams: 04/11/19 14:42 04/11/19 14:42 - EKG 1 Time of EKG reading by physician:: 13:02 EKG Read and Signed by:: Dc Whittington EKG Interpretation (*Must complete 3 of following elements*): Abnormal Rate: 54 Rhythm: sinus bradycardia with marked sinus arrhythmia QRS: LBB (incomplete) [place] Interval: normal Comments: nonspecific T wave abnormality. - XRAY 1 XRAY Study: Chest Impression: See EMR Report (CHEST-1 VIEW - 04/11/2019 INDICATION: bradycardia COMPARISON: 12/03/2018 FINDINGS: Stable cardiomegaly and pulmonary vascular congestion. Stable coarse interstitial opacities in the lung bases suggesting pulmonary fibrosis, left greater than right. No new infiltrates. No large pleural effusion. IMPRESSION: No change from prior. Electronically signed by Logan Ndiaye 04/11/2019 2:31 PM 04/11/19 1431 Interpreting Physician: Logan Ndaiye MD Dictated Date/Time: 04/11/19 1430 cc: Dc Whittington MD; None,PCP) - CONSULTS/PCP/HOSPITALIST Notification #1 *Consult/PCP/Hospitalist*: Olga COMMISSION AUDITOR for Hospitalist Time Discussed: 15:45 Consult Disposition: Will see in ED, Admit Departure - Departure Date of Disposition Decision: 04/11/19 Time of Disposition Decision: 15:28 DIAGNOSIS: Dizziness, Symptomatic bradycardia Disposition: ADMITTED INPATIENT 09 Certified Medical Emergency: Emergent Condition: Fair Referrals and Follow-Ups: None,PCP [Primary Care Provider] - - Critical Care Note This patient required my direct & personal management of CC.: No Attestation - Physician/ CHARMAINE Attestation Patient care was provided by Advanced Practice Provider:: No The physician spent face to face time with patient:: Yes Advanced Practice Provider documentation review:: Supervising physician onsite and consulted in the evaluation and care of this patient. The physician did have a face to face encounter with the patient. This chart was documented by the indicated scribe, (Linh Carrizales, Paige) and accurately reflects the services I performed and decisions made by me, Dc Jacobs MD, as attested by the provider's signature.
[2019-04-11] MEDS ORDERED: ZOFRAN IV PRN (16:04)
[2019-04-11] MEDS: APRESOLINE PO SCH (16:42)
--- NOTE | 2019-04-11 17:19 | HISTORY AND PHYSICAL ---
CHIEF COMPLAINT: Dizziness and low heart rate. HISTORY OF PRESENT ILLNESS: This is an 83-year-old gentleman with a history of chronic dizziness, hypertension, bradycardia, and BPH. He presents to the emergency room for evaluation as his dizziness has increased. He reports chronic dizziness for many years occurring with " fast position changes that usually goes away in a few seconds". Over the last few weeks dizziness has been present with all position changes. He reports heart rates that have ranged as low as 42 to the high 50s and low 60s for quite some time. He has been evaluated at the [facility], and they have given him no clear reason for this. He denies any chest pain, any palpitations, any shortness of breath, cough, fever, or chills. PAST MEDICAL HISTORY: Hypertension, chronic dizziness, BPH, and gout. PAST SURGICAL HISTORY: Cholecystectomy, bowel resection, and back surgery. SOCIAL HISTORY: He denies any tobacco or illicit drug use. He does drink occasionally on social occasions. ALLERGIES: No known drug allergies. FAMILY HISTORY: There is no history of coronary artery disease. He does have a history of hypertension in both parents. REVIEW OF SYSTEMS: Discussed with patient with pertinent positives stated in the HPI. He denied any syncope, any chest pain or palpitations, shortness of breath, cough, fever, chills, night sweats, recent weight loss or weight gain, any nausea, vomiting, diarrhea, constipation, black or bloody vomitus or stools, hematuria, dysuria, frequency, or urgency. PHYSICAL EXAMINATION: GENERAL: This is an 83-year-old gentleman who is lying on the stretcher in the emergency room in no distress. VITAL SIGNS: Blood pressure is 155/87 with heart rate of 52, respirations are 16, temperature is 98.1 degrees oral with room air saturations 98 to 99 percent. EYES: Pupils are equal, round, and reactive to light. EOMs are intact. Sclerae anicteric. HEENT: Head is normocephalic, atraumatic. Mucous membranes are moist. NECK: Supple with trachea midline. PULMONARY: Breath sounds are clear. No increased work of breathing noted. Chest rises and falls with symmetric respiration. GASTROINTESTINAL: Abdomen is soft, nontender, and nondistended. Bowel sounds in all 4 quadrants. CARDIOVASCULAR: Regular rate and rhythm. He is bradycardic. S1 and S2 appreciated. He has no lower extremity edema. Calves are nontender bilateral. NEUROLOGIC: He is alert and oriented x3. SKIN: Warm and dry. LABORATORY: WBC is 6 with hemoglobin 12.3, hematocrit 38.4, and platelets 142,000. Sodium is 144, potassium 4.5, BUN 15, creatinine 1.3 with a glucose of 94. Troponin is negative. Chest x- ray revealed stable cardiomegaly and pulmonary vascular congestion. Stable coarse and interstitial opacities in the lung bases suggesting pulmonary fibrosis with left greater than right. No new infiltrates. No large pleural effusion. ASSESSMENT AND PLAN: 1. Symptomatic bradycardia. 2. Chronic dizziness. 3. Hypertension. 4. Acute kidney injury. 5. Chronic obstructive pulmonary disease. PLAN: Patient will be admitted to the medical floor. He will be placed on telemetry. review his home medications and continue as appropriate. orthostatic vital signs q.12 hours. echocardiogram. CBC, CMP, and magnesium in the morning. Further treatments pending hospital course. Plan was discussed with Dr. Rviera. Dictated by MAGGIE Huynh for Rickey Del Castillo MD Addendum: Patient seen and examined by myself. Agree with MAGGIE note. It reflects my assessment and plan. Patient is being admitted to hospital for symptomatic bradycardia. For possible pacemaker placement will consult cardiology. Will monitor patient closely in [facility]. cc: MAGGIE Huynh MD [facility]
[2019-04-12] MEDS: APRESOLINE PO SCH ×3 (00:32→16:06)
[2019-04-12 06:10] LABS: BASO# 0.03 X1000 (0.0-0.2); BASO% 0.5 % (0.0-0.8); EOS# 0.07 X1000 (0.0-0.7); EOS% 1.1 % (0.0-10.0); HEMATOCRIT 38.7 % (42.0-52.0); HEMOGLOBIN 12.5 g/dL (14.0-18.0); IMM GRAN# 0.03 X1000 (0.0-0.04); IMM GRAN% 0.5 % (0.0-0.5); LYMPH# 1.83 X1000 (1.2-3.4); MCH 25.9 PG (27-31); MCHC 32.3 g/dL (33-37); MCV 80.1 FL (81-99); MONO# 0.91 X1000 (0.11-0.59); MONO% 14.4 % (1.7-9.3); MPV 12.3 FL (7.4-10.4); NEUT# 3.45 X1000 (1.4-6.5); NEUT% 54.5 % (42.2-75.2); PLT 153 X1000 (130-400); RBC 4.83 XMIL (4.7-6.1); RDW 14.5 % (11.5-14.5); WBC 6.32 X1000 (4.8-10.8)
[2019-04-12 06:16] LABS: AGAP 12; ALB/GLOB RATIO 1.3; ALKALINE PHOSPHATASE 88 U/L (32-122); BUN 15 mg/dL (8-22); CALCIUM 8.6 mg/dL (8.8-10.2); CHLORIDE 105 mmol/L (98-107); COSMO 280; CREATININE 1.1 mg/dL (0.7-1.2); ESTIMATED GFR > 60; GLUCOSE 99 mg/dL (70-104); GOT 17 U/L (10-34); GPT 10 U/L (10-44); MAGNESIUM 2.1 mg/dL (1.5-2.7); SODIUM 140 mmol/L (136-145); TCO2 23 mmol/L (25-35); TOTAL BILIRUBIN 0.42 mg/dL (0.20-1.00)
[2019-04-12] MEDS: PROSCAR PO SCH (08:06)
[2019-04-12] MEDS: MIRALAX PO SCH (08:06)
[2019-04-12] MEDS ORDERED: FLOMAX PO SCH (09:00)
--- NOTE | 2019-04-12 11:28 | PROGRESS NOTE ---
DATE: 04/12/2019 SUBJECTIVE: Patient reports feeling fine. No more dizziness noted. OBJECTIVE: Vital Signs: Temperature 98.1 degrees, heart rate 53, respiratory rate 18, blood pressure 164/76, O2 saturation 98% on room air. Orthostatic indicates patient drops in blood pressure 154 to 125. General Examination: This is an 83-year-old, male, lying in bed in no acute distress. Cardiovascular Exam: S1, S2 heard. Bradycardic, but no murmurs, gallops or rubs noted. Respiratory Exam: Clear bilaterally to auscultation. No work of breathing or using accessory muscles. Abdomen: Soft. Nontender to palpation. Bowel sounds present. No organomegaly. Extremities: No clubbing, cyanosis or edema. Peripheral pulses present in both legs. Neurological Exam: Patient is alert and oriented x3. Moves 4 extremities. LABORATORY DATA: Reviewed. ASSESSMENT: 1. Symptomatic bradycardia. 2. Hypertension. 3. Acute kidney injury. 4. Chronic obstructive pulmonary disease with mild exacerbation. PLAN: At this point, the patient has been admitted to the hospital for symptomatic bradycardia. He is not dizzy anymore, but his heart rate ranged between low 50s and high 50s. He is still orthostatic; not quite sure if that is related to hydralazine. In any case, blood pressure is slightly elevated 164. We will continue with the current management. We will provide some intravenous fluids normal saline at 75 mL per hour. Will await evaluation from Cardiology. cc: Rickey Del Castillo MD
[2019-04-12] MEDS: FLOMAX PO SCH ×2 (20:00→21:10)
--- NOTE | 2019-04-12 20:17 | CONSULTATION ---
DATE OF CONSULTATION: 04/12/2019 IMPRESSION: 1. Chronic sinus bradycardia. Patient demonstrates in heart rate with standing and physical activity. There is no history of syncope. 2. Transient postural lightheadedness upon standing. Patient demonstrates mild orthostatic drop in blood pressure but also manifests appropriate increase in heart rate with this. 3. Hypertension. 4. Prostate hypertrophy treated with tamsulosin which patient has been taking in the mornings. 5. Previous history of atrial fibrillation in the past without recurrence. 6. Gout. 7. Chronic obstructive pulmonary disease. RECOMMENDATIONS: 1. Pacemaker not needed at this time. 2. Administer tamsulosin on bedtime schedule. 3. Discontinue hydralazine. 4. Go back to losartan 25 mg p.o. daily for blood pressure. Thereafter may consider adding amlodipine. 5. Reasonable for patient to be discharged in a.m. 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 Peter. Govea. HISTORY: This 83-year-old male with past history of longstanding hypertension, chronic tendency for sinus bradycardia, prostate hypertrophy, gout, COPD was admitted to the emergency room because of bradycardia and tendency for transient postural lightheadedness. He relates he actually went to see his [facility] doctor in [place] primarily because of symptoms of nocturia related to his prostate hypertrophy. He was noted to have bradycardia and on further questioning, indicated some tendency for transient postural lightheadedness which has been going on for sometime. There has been no syncope. There has been no chest pain or shortness of breath. He was advised to urgently go to the emergency room in [place] for evaluation and possible admission. Since admission he has demonstrated tendency for sinus bradycardia at rest. But upon standing, he has a mild dip in blood pressure of perhaps 20 mmHg with an increase in heart rate to 90 beats per minute. PAST MEDICAL HISTORY: 1. Hypertension. 2. Prostate hypertrophy. 3. Chronic sinus bradycardia. 4. Previous atrial fibrillation in the past without recurrence. 5. Gout. 6. Chronic obstructive pulmonary disease. PAST SURGICAL HISTORY: Cholecystectomy, bowel resection and unspecified back surgery. ALLERGIES: No known drug allergies. MEDICATIONS PRIOR TO ADMISSION: As listed. SOCIAL HISTORY: He does not smoke. He drinks an infrequent alcoholic beverage on a social basis. FAMILY HISTORY: Negative for premature coronary disease. REVIEW OF SYSTEMS: Pulmonary: Negative. Gastrointestinal: Negative. Constitutional: Negative. Remainder of review of systems negative/noncontributory with 14 total systems reviewed. PHYSICAL EXAMINATION: General: This is a pleasant, older, male in no distress on room air. Vital signs: Blood pressure 138/60, heart rate 50. ECG monitor showing sinus bradycardia. Oxygen saturation 99% on room air. HEENT: Extraocular movements intact. Mucous membranes are moist. Neck: Supple without jugular venous distention. There are no carotid bruits. Chest: Clear to auscultation. Cardiac Exam: Reveals a regular rate and rhythm without appreciable murmur or gallop. Abdomen: Soft. Bowel sounds are normal. Extremities: Without edema. Neurologic: Reveals him to be alert and fully oriented. Speech is fluent. Moves all 4 extremities equally well. Skin: Warm and dry. Psychiatric: Reveals mood to be appropriate. PERTINENT DATA: Twelve lead EKG demonstrates sinus bradycardia with occasional premature supraventricular complex, nonspecific interventricular conduction delay and nonspecific T-wave abnormality. LABORATORY DATA: Includes a white blood cell count of 6.32, hematocrit 38.7, hemoglobin 12.5, platelet count 153,000. Sodium 140, potassium 4.0, chloride 105, carbon dioxide 23, BUN 15, creatinine 1.1. Troponin T less than 0.01. Calcium 8.6, albumin 4.0. cc: Jose C Shook MD
[2019-04-13 08:07] VITALS: BP 133/56
[2019-04-13] MEDS: PROSCAR PO SCH (08:19)
[2019-04-13] MEDS: MIRALAX PO SCH (08:19)
[2019-04-13] MEDS ORDERED: COZAAR PO SCH (09:00)
--- NOTE | 2019-04-13 21:58 | DISCHARGE SUMMARY ---
ADMISSION DATE: 04/11/2019 DISCHARGE DATE: 04/13/2019 DISCHARGE DIAGNOSES: 1. Symptomatic bradycardia resolved. 2. Hypertension. 3. Acute kidney injury. 4. Chronic obstructive pulmonary disease not in acute exacerbation. CONSULTATIONS: Dr. Shook from Cardiology. PROCEDURES: Chest x-ray done on admission showed no change from prior. Stable coarse interstitial opacities in the lung base suggesting pulmonary fibrosis. HOSPITAL COURSE: This is an 83-year-old, male with history of chronic dizziness, hypertension, bradycardia, and BPH who presented to the emergency department for evaluation that his dizziness has increased and he was noticed to be bradycardic in the ER. So, he was admitted to the hospital. We consulted Cardiology to see if this bradycardia is a reaction from medication that he takes or he may need to have a pacemaker placed. Cardiology thinks that we need to make a change in his medications. In this case, they recommend to stop hydralazine and decrease the dose of losartan that he is already taking. From a cardiac standpoint, patient can be discharged. We did that. Changed 1 day before admission. The next day his heart rate has been better in the range of 70s and 80s. Patient is not dizzy anymore, so patient is going to be discharged in stable condition. Patient reported that he was having cough for the last few days. The x-ray did not show any clear pneumonia. I think this patient may have developed bronchitis, so he received antibiotics for 10 days. The patient is being discharged in stable condition. He is supposed to have followup with his primary traveling clerk in 2 to 3 weeks. DISCHARGE PHYSICAL EXAMINATION: Vital Signs: Temperature 98.1 degrees, heart rate 63, respiratory rate 20, blood pressure 133/56. O2 saturation 97% on room air. General: This is an 89-year-old male, lying in bed, in no acute distress. Cardiovascular: S1, S2 heard. No murmurs, gallops, or rubs. Regular rate and rhythm. Respiratory: Clear bilaterally to auscultation. Very minimal rhonchi in both pulmonary bases. Patient not using any accessory muscles or having work of breathing. Abdomen: Soft. Nontender to palpation. Bowel sounds present. No organomegaly. Extremities: No clubbing, cyanosis, or edema. Peripheral pulses present in both legs. Neurological: The patient alert and oriented x3. Moves all 4 extremities. DISCHARGE DISPOSITION: 1. Home to self care 2. Follow up with Jonathan Govea in 2 to 3 weeks. LIST OF MEDICATIONS: 1. Levofloxacin 750 mg 1 tablet p.o. daily for 10 days. 2. Allopurinol 300 mg 1 tablet p.o. daily. 3. Amlodipine 10 mg 1 tablet p.o. daily. 4. Multivitamin 1 tablet p.o. daily. 5. Finasteride 5 mg 1 tablet p.o. daily. 6. Sildenafil 1 tablet p.o. as needed. 7. Flomax 1 tablet p.o. at night. 8. Losartan 25 mg 1 tablet p.o. daily. TIME SPENT: Time discharging this patient 36 minutes. cc: Rickey Del Castillo MD MTDD
== END 2019-04-13 11:43 | disposition home health service (06) ==
LOC: ED 12:48 → 2N 20:44 → INTOOBSV 20:44
PROVIDERS: ATTEND Internal Medicine